=== PATIENT | male | born 1985 | race Caucasian/White ===

== ENCOUNTER 2023-02-05 23:54 | Emergency (ER) | payer OTHER, SELFPAY ==
[2023-02-05 23:58] VITALS: BP 133/87; PULSE 85; RESP 16; TEMP 36.7; O2SAT 100; BMI 24.4
--- NOTE | 2023-02-06 00:07 | ED.EYEPROB1 ---
HPI - Eye Problem General Chief complaint: Eye Problems Stated complaint: EYE REDNESS Time Seen by Provider: 02/05/23 23:59 Source: patient Mode of arrival: walk-in History of Present Illness HPI Narrative: patient was wrestling tonight and afterward the left eye got red, itchy and he has a foreign body sensation in that eye. He does not wear contact lenses. He denied getting poked or scratched in the left eye. this started a few hours ago. Related Data Home Medications Medication Instructions Recorded Confirmed No Known Home Medications 02/06/23 02/06/23 Allergies Allergy/AdvReac Type Severity Reaction Status Date / Time No Known Drug Allergies Allergy Verified 02/06/23 00:03 Exam Narrative Exam Narrative: General: The patient appears well and in no apparent distress. Patient is resting comfortably on cart. Skin: Warm, dry, no pallor noted. Head: Normocephalic, atraumatic Neck: Supple, trachea mid-line, no tenderness, no lymphadenopathy Eye: Normal extraocular motion without associated pain. Pupils equal, round and reactive to light. Conjunctival injection noted. No swelling of the upper/lower eyelid. Patient's upper eyelid was everted - no evidence of foreign body. The patient had ALCAINE/TETRACAINE applied to the left eye with fluorescein dye instilled afterward. Exam with Wood's lamp showed uptake at the 12 o'clock position of the cornea. No evidence of hyphema, dendritic lesion, corneal ulcerations, preseptal cellulitis or orbital cellulitis. Ears, Nose, Mouth, and Throat: oral mucosa is moist Respiratory: Patient is in no distress Neurological: A&O x4, normal speech Psychiatric: Cooperative and interactive. Constitutional Vital Signs, click to edit/add: Last Vital Signs Temp 98.1 F 02/05/23 23:58 Pulse 85 02/05/23 23:58 Resp 16 02/05/23 23:58 BP 133/87 H 02/05/23 23:58 Pulse Ox 100 02/05/23 23:58 Course Vital Signs Vital signs: Vital Signs Temperature 98.1 F 02/05/23 23:58 Pulse Rate 85 02/05/23 23:58 Respiratory Rate 16 02/05/23 23:58 Blood Pressure 133/87 H 02/05/23 23:58 Pulse Oximetry 100 02/05/23 23:58 Temperature 98.1 F 02/05/23 23:58 Pulse Rate 85 02/05/23 23:58 Respiratory Rate 16 02/05/23 23:58 Blood Pressure 133/87 H 02/05/23 23:58 Pulse Oximetry 100 02/05/23 23:58 MDM - Eye Problem MDM Narrative Medical decision making narrative: I do not see any corneal foreign body or foreign body underneath the upper eyelid, which I inverted. There is a large area of corneal abrasion to the 12 o'clock position of the cornea. No dendritic lesions or ulcerative process. 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 Discharge Plan Discharge Chief Complaint: Eye Problems Clinical Impression: Corneal abrasion Patient Disposition: Home, Self-Care Time of Disposition Decision: 00:18 Prescriptions / Home Meds: No Action No Known Home Medications Instructions: Corneal Abrasion (ED) Stand Alone Forms: Portal Instructions
--- NOTE | 2023-02-06 00:16 | PC.NURSE ---
Pt presents to ER for left eye pain and redness Pt was in a wrestling match several hours ago and afterwards began noticing the watering eye and pain pt's sclera is reddened Pt denies noticing an injury or foreign body during the match Pt states he attempted to flush the eye and does not see anything in it
[2023-02-06] MEDS: FLUORESCEIN SODIUM 1 MG STRIP OP (00:18)
[2023-02-06] MEDS: ERYTHROMYCIN OP OINT 0.5% 1 GM TUBE OP (00:31)
== END 2023-02-06 00:41 | disposition home or self-care (01) ==
PROVIDERS: Emergency Provider Emergency Medicine
DX: S05.02XA Injury of conjunctiva and corneal abrasion without foreign body, left eye, initial encounter (principal); X58.XXXA Exposure to other specified factors, initial encounter; Y93.72 Activity, wrestling
CPT/HCPCS: 99283